=== PATIENT | male | born 1970 | race Caucasian/White ===

== ENCOUNTER 2021-08-22 10:39 | Day surgery (SDC) | payer BC ==
[~2021-08-22 10:39] MED LIST: Lactated Ringers 1,000 ML IV SCH
[2021-08-22] MEDS ORDERED: Propofol 200 MG/20 ML SDV ONE (10:58)
[2021-08-22] MEDS ORDERED: fentaNYL 100 MCG/2 ML SDV ONE (11:02)
[2021-08-22] MEDS ORDERED: Lidocaine 2% 5 ML SDV ONE (11:02)
== END 2021-08-22 12:55 | disposition home or self-care (01) ==
LOC: MW.SDS 10:39
PROVIDERS: ATTEND Surgery
DX: D64.9 Anemia, unspecified (principal); K64.8 Other hemorrhoids; K64.4 Residual hemorrhoidal skin tags; K31.89 Other diseases of stomach and duodenum; F17.210 Nicotine dependence, cigarettes, uncomplicated; E66.9 Obesity, unspecified; K21.9 Gastro-esophageal reflux disease without esophagitis; I10 Essential (primary) hypertension; Z79.899 Other long term (current) drug therapy; Z68.35 Body mass index [BMI] 35.0-35.9, adult
CPT/HCPCS: 36415; 43239; 45378; 85025; J2704; J3010; J7120; 00813